=== PATIENT | male | born 1985 | race Caucasian/White ===

== ENCOUNTER 2020-05-06 15:33 | Emergency (ER) | payer OTHER ==
[~2020-05-06] VITALS: Ht 165.1 cm; Wt 64.0 kg
[2020-05-06] MEDS ORDERED: URIN D.S. TABL1 EACH PO (22:05)
[2020-05-06] MEDS ORDERED: TAMS0.4C PO (22:05)
[2020-05-06] MEDS ORDERED: KETO10TA2 PO (22:05)
[2020-05-06] MEDS ORDERED: ULTRAM50 MG PO (22:05)
== END 2020-05-06 22:16 | disposition home or self-care (01) ==
LOC: ER 15:33
DX: N20.1 Calculus of ureter (principal); R10.11 Right upper quadrant pain; Z03.818 Encounter for observation for suspected exposure to other biological agents ruled out